=== PATIENT | female | born 1960 | race Two or more races ===

== ENCOUNTER 2017-12-25 17:40 | Emergency (ER) | payer BC, OTHER ==
[~2017-12-25] VITALS: Ht 154.9 cm; Wt 61.2 kg
[2017-12-25] MEDS ORDERED: TDAP DIPH,PERTUSS,TET VAC/PF 0.5 ML DISP.SYRIN IM ONE ×2 (18:30→18:33)
--- NOTE | 2017-12-25 18:56 | NUR ---
[facility] IM ADMIN ERALIER/RLE XRAY DONE, WOUNDS CLEANED.
--- NOTE | 2017-12-25 19:02 | NUR ---
REPORT TAKEN FROM DAY SHIFT RN. ASSUMING PT CARE AT THIS TIME.
--- NOTE | 2017-12-25 19:05 | NUR ---
Patient discharged to home in stable conditon. Written and verbal after care instructions given. Patient verbalizes understanding of instructions. Pt took all personal belongings.
[2017-12-25 19:10] VITALS: BP 116/64
== END 2017-12-25 19:11 | disposition home or self-care (01) ==
LOC: ER 17:43
DX: S80.811A Abrasion, right lower leg, initial encounter (principal); W25.XXXA Contact with sharp glass, initial encounter; Y93.89 Activity, other specified; Y92.89 Other specified places as the place of occurrence of the external cause; Y99.8 Other external cause status
CPT/HCPCS: 73590; 73630; 90471; 90715; 99284; A4663

== ENCOUNTER 2018-01-06 16:39 | Emergency (ER) | payer OTHER ==
[~2018-01-06] VITALS: Ht 154.9 cm; Wt 61.2 kg
--- NOTE | 2018-01-06 17:56 | NUR ---
Patient discharged to home in stable conditon. Written and verbal after care instructions given. Patient verbalizes understanding of instructions.
== END 2018-01-06 17:58 | disposition home or self-care (01) ==
LOC: ER 16:41
DX: S90.31XA Contusion of right foot, initial encounter (principal); W20.8XXA Other cause of strike by thrown, projected or falling object, initial encounter; Y93.89 Activity, other specified; Y92.89 Other specified places as the place of occurrence of the external cause; Y99.8 Other external cause status
CPT/HCPCS: 73630; A4663

== ENCOUNTER 2018-12-22 12:02 | Emergency (ER) | payer OTHER ==
[~2018-12-22] VITALS: Ht 157.5 cm; Wt 61.2 kg
--- NOTE | 2018-12-22 13:10 | NUR ---
Patient discharged to home in stable conditon. Written and verbal after care instructions given. Patient verbalizes understanding of instructions.pt walks in steady gait.
== END 2018-12-22 13:11 | disposition home or self-care (01) ==
LOC: ER 12:02
DX: S80.01XA Contusion of right knee, initial encounter (principal); W18.30XA Fall on same level, unspecified, initial encounter; Y93.89 Activity, other specified; Y92.89 Other specified places as the place of occurrence of the external cause; Y99.8 Other external cause status
CPT/HCPCS: A4663